=== PATIENT | male | born 1965 | race Caucasian/White ===

== ENCOUNTER 2019-06-03 11:25 | Emergency (ER) | payer BC ==
[2019-06-03] MEDS ORDERED: FLU Vacc QS2019-20(6MOS+)/PF 60 MCG/0.5 ML SYRINGE IM ONE (12:00)
[2019-06-03] MEDS ORDERED: Sodium Chloride 0.9% 10 ML Syringe FLUSH PRN (12:02)
[2019-06-03] MEDS ORDERED: Sodium Chloride 0.9% 1,000 ML IV ONE (12:03)
[2019-06-03] MEDS ORDERED: Ondansetron 4 MG/2 ML SDV IVPUSH ONE (12:03)
--- NOTE | 2019-06-03 12:33 | EDM.PDOC ---
ED HPI GENERAL MEDICAL PROBLEM - General Chief Complaint: Respiratory Problem Stated Complaint: CHEST CONGESTION Time Seen by Provider: 06/03/19 11:57 Source of Information: Reports: Patient, RN Notes Reviewed History Limitations: Reports: No Limitations - History of Present Illness INITIAL COMMENTS - FREE TEXT/NARRATIVE: Patient is a 53-year-old male who presents to the ED for the evaluation of chest congestion and a cough. The patient states that since May 18, he has had increased chest congestion, a cough that is now producing some dark yellow to green sputum, nasal congestion and fevers. Patient states that his temperatures been as high as 104 at home, however temperature in here today is 98.7F. Patient has been taking some Tylenol and NyQuil for management of these symptoms, but nothing has been really working. He is been unable to go to work due to the illness. Patient states he's been trying to go be seen in the clinic however they tell him that there fall, so he presents to the ER for evaluation. Patient states he's been coughing so much she just has muscle discomfort generally all over. He states that he coughs so much once that he ended up vomiting. He notes some mild nausea but no other vomiting noted. He' s been noticing streaks of blood in the phlegm and when he is going his nose. Patient relates a history of vertigo, so he states his ears are normally all stuffed up. His complaints are shortness of breath, generalized myalgias, dizziness that is not out of the norm for him, some nausea, chest pain or discomfort, a productive cough, and fevers and chills. His primary care physician is Chadwick Doe Chest Pain Score (Numeric/FACES): 7 - Related Data Allergies Allergy/AdvReac Type Severity Reaction Status Date / Time pollen extracts Allergy Sneezing Verified 06/03/19 11:51 Home Meds: Home Meds Azithromycin 250 mg PO DAILY #6 tablet 06/03/19 [Rx] Pravastatin [Pravachol] 40 mg PO DAILY 06/03/19 [History] Past Medical History Cardiovascular History: Reports: High Cholesterol Respiratory History: Reports: None Gastrointestinal History: Reports: GERD Genitourinary History: Reports: None Musculoskeletal History: Reports: Arthritis Neurological History: Reports: None Psychiatric History: Reports: Depression Endocrine/Metabolic History: Reports: None Hematologic History: Reports: None Immunologic History: Reports: None Oncologic (Cancer) History: Reports: None Dermatologic History: Reports: None - Infectious Disease History Infectious Disease History: Reports: None - Past Surgical History Head Surgeries/Procedures: Reports: None HEENT Surgical History: Reports: Adenoidectomy, Myringotomy w Tube(s), Tonsillectomy Other HEENT Surgeries/Procedures: Right Ear Tube Social & Family History - Tobacco Use Smoking Status *Q: Never Smoker - Caffeine Use Caffeine Use: Reports: Coffee - Recreational Drug Use Recreational Drug Use: No ED ROS GENERAL - Review of Systems Review Of Systems: See Below Constitutional: Reports: Fever, Chills, Malaise HEENT: Reports: No Symptoms Respiratory: Reports: Shortness of Breath, Cough, Sputum Cardiovascular: Reports: Chest Pain (chest discomfort) Endocrine: Reports: No Symptoms GI/Abdominal: Reports: Nausea, Vomiting (1 episode d/t coughing hard). Denies: Abdominal Pain, Constipation, Diarrhea : Reports: No Symptoms Musculoskeletal: Reports: Muscle Pain (generalized myalgias) Skin: Reports: No Symptoms Neurological: Reports: Dizziness. Denies: Headache Psychiatric: Reports: No Symptoms Hematologic/Lymphatic: Reports: No Symptoms Immunologic: Reports: No Symptoms ED EXAM, GENERAL - Physical Exam Exam: See Below Exam Limited By: No Limitations General Appearance: Alert, WD/WN, No Apparent Distress Eye Exam: Bilateral Eye: EOMI, Normal Inspection, PERRL Ears: Normal External Exam, Normal Canal, Hearing Grossly Normal, Normal TMs Nose: Normal Inspection Throat/Mouth: Normal Inspection, Normal Lips, Normal Teeth, Normal Gums, Normal Oropharynx, Normal Voice, No Airway Compromise Head: Atraumatic, Normocephalic Neck: Normal Inspection Respiratory/Chest: No Respiratory Distress, Lungs Clear, No Accessory Muscle Use , Chest Non-Tender, Decreased Breath Sounds (bilaterally) Cardiovascular: Normal Peripheral Pulses, Regular Rate, Rhythm, No Murmur Peripheral Pulses: 3+: Radial (L), Radial (R) GI/Abdominal: Normal Bowel Sounds, Soft, Non-Tender, No Distention, No Mass Extremities: Normal Inspection, Normal Capillary Refill Neurological: Alert, Oriented, Normal Cognition, No Motor/Sensory Deficits Psychiatric: Normal Affect, Normal Mood Skin Exam: Warm, Dry, Intact, Normal Color, No Rash EKG INTERPRETATION EKG Date: 06/03/19 Time: 12:06 Rhythm: Other (Sinus tach) Rate (Beats/Min): 104 [place]: Normal P-Wave: Present QRS: Normal ST-T: Normal QT: Normal Comparison: NA - No Prior EKG EKG Interpretation Comments: Reviewed with Dr. Eagle and by myself. Course - Vital Signs Last Recorded V/S: Last Vital Signs Temp 98.7 F 06/03/19 11:47 Pulse 104 H 06/03/19 11:47 Resp 18 06/03/19 11:47 BP 142/88 H 06/03/19 11:47 Pulse Ox 95 06/03/19 11:47 - Orders/Labs/Meds Orders: Active Orders 24 hr Category Date Time Status EKG Documentation Completion [] STAT Care 06/03/19 12:01 Active Incentive Spirometry [RT Incentive Spirometry] [] Care 06/03/19 15:06 Active Q1HWA Influenza Vaccine Charge [] .DISCHARGE Care 06/03/19 11:55 Active Peripheral IV Care [] . DIRECTED Care 06/03/19 12:03 Active Sodium Chloride 0.9% [Normal Saline] 1,000 ml Med 06/03/19 12:03 Active IV ONETIME Sodium Chloride 0.9% [Saline Flush] Med 06/03/19 12:02 Active 10 ml FLUSH ASDIRECTED PRN Peripheral IV Insertion Adult [OM.PC] Stat Oth 06/03/19 12:02 Ordered Medication Orders Sodium Chloride (Normal Saline) 1,000 mls @ 125 mls/hr IV ONETIME ONE Stop: 06/03/19 20:02 Last Admin: 06/03/19 13:14 Dose: 125 mls/hr Sodium Chloride (Saline Flush) 10 ml FLUSH ASDIRECTED PRN PRN Reason: Keep Vein Open Last Admin: 06/03/19 13:14 Dose: 10 ml Labs: Laboratory Tests 06/03/19 06/03/19 Range/Units 12:15 12:15 WBC 16.29 H (4.23-9.07) K/mm3 RBC 4.68 (4.63-6.08) M/mm3 Hgb 14.7 D (13.7-17.5) gm/dl Hct 42.0 (40.1-51.0) % MCV 89.7 (79.0-92.2) fl MCH 31.4 (25.7-32.2) pg MCHC 35.0 (32.2-35.5) g/dl RDW Std Deviation 41.4 (35.1-43.9) fL Plt Count 399 H D (163-337) K/mm3 MPV 8.9 L (9.4-12.3) fl Neutrophils % (Manual) 80 H (40-60) % Band Neutrophils % 5 (0-10) % Lymphocytes % (Manual) 11 L (20-40) % Atypical Lymphs % 0 % Monocytes % (Manual) 4 (2-10) % Eosinophils % (Manual) 0 L (0.8-7.0) % Basophils % (Manual) 0 L (0.2-1.2) Platelet Estimate Adequate RBC Morph Comment Normal Sodium 137 (136-145) mEq/L Potassium 4.8 (3.5-5.1) mEq/L Chloride 103 (98-107) mEq/L Carbon Dioxide 24 (21-32) mEq/L Anion Gap 14.8 (5-15) BUN 11 (7-18) mg/dL Creatinine 1.1 (0.7-1.3) mg/dL Est Cr Clr Drug Dosing 76.77 mL/min Estimated GFR (MDRD) > 60 (>60) mL/min BUN/Creatinine Ratio 10.0 L (14-18) Glucose 100 (74-106) mg/dL Calcium 9.1 (8.5-10.1) mg/dL Total Bilirubin 0.5 (0.2-1.0) mg/dL AST 29 (15-37) U/L ALT 47 (16-63) U/L Alkaline Phosphatase 126 H (46-116) U/L Troponin I < 0.017 (0.00-0.056) ng/mL Total Protein 7.5 (6.4-8.2) g/dl Albumin 3.2 L (3.4-5.0) g/dl Globulin 4.3 gm/dL Albumin/Globulin Ratio 0.7 L (1-2) Meds: Medications Generic Name Dose Route Start Last Admin Trade Name Freq PRN Reason Stop Dose Admin Sodium Chloride 1,000 mls @ 125 mls/hr 06/03/19 12:03 06/03/19 13:14 Normal Saline IV 06/03/19 20:02 125 mls/hr ONETIME ONE Administration Sodium Chloride 10 ml 10/02/19 12:02 06/03/19 13:14 Saline Flush FLUSH 10 ml ASDIRECTED PRN Administration Keep Vein Open Discontinued Medications Generic Name Dose Route Start Last Admin Trade Name Cassandra PRN Reason Stop Dose Admin Ceftriaxone Sodium 2 gm/ 100 mls @ 200 mls/hr 06/03/19 13:27 06/03/19 14:03 Sodium Chloride IV 06/03/19 13:56 200 mls/hr ONETIME ONE Administration Influenza Virus Vaccine 1 each 06/03/19 11:55 Pharmacy To Dose - Influenza Vaccine IM 06/03/19 11:56 ONETIME ONE Influenza Virus Vaccine 60 mcg 06/03/19 12:00 Fluzone Quad [id number] Syringe IM 06/03/19 12:01 .ONCE ONE Ondansetron HCl 4 mg 06/03/19 12:03 06/03/19 13:14 Zofran IVPUSH 06/03/19 12:04 4 mg ONETIME ONE Administration - Re-Assessments/Exams Free Text/Narrative Re-Assessment/Exam: 06/03/19 12:00 Patient presents to the ED for evaluation of chest congestion and a cough for 2 weeks. Have ordered a chest x-ray, CBC, CMP, EKG, and troponin, some IV fluids , and 4 mg Zofran for initial management. He states he was mildly nauseous at time of arrival. 06/03/19 13:14 Patient's chest x-ray is done, and there was an area on the right side of his chest so suspicious for developing pneumonia in nature, this was identified by myself and Dr. Eagle. His white blood cell count is elevated at 16,000 with 80 % neutrophils and 5% bands, which further points in the direction of a pneumonia. 06/03/19 13:31 Patient's chest x-ray is done, and radiology appreciates nothing acute on the two-view chest x-ray, however due to the patient's increased white count and course of illness I will treat him for pneumonia, he will get 2 g Rocephin in the ER, with an outpatient prescription for a azithromycin. Of note the patient 's oxygen saturations to go to the low 90s when the patient is coughing, but they returned to mid 90s when he takes some deeper breaths. 06/03/19 14:41 Patient did receive his IV Rocephin, we'll discharge home with general recommendations. There is a new quality management that every patient ER should be offered a influenza vaccine, however with the patient's current illness it is not clinically indicated for this gentleman to receive the vaccination today, it was discussed with him about waiting until he is feeling better to get the influenza vaccine, he is in agreement with this. Departure - Departure Time of Disposition: 14:42 Disposition: Home, Self-Care 01 Condition: Fair Clinical Impression: Pneumonia Qualifiers: Pneumonia type: due to unspecified organism Laterality: right Lung location: middle lobe of lung Qualified Code(s): J18.1 - Lobar pneumonia, unspecified organism - Discharge Information *PRESCRIPTION DRUG MONITORING PROGRAM REVIEWED*: No *COPY OF PRESCRIPTION DRUG MONITORING REPORT IN PATIENT SPENCER: No Prescriptions: Azithromycin 250 mg PO DAILY #6 tablet Instructions: Community-Acquired Pneumonia, Adult, [id number] Referrals: Vandana Doe, DNA ANALYST [Primary Care Provider] - Forms: ED Department Discharge Additional Instructions: You have been evaluated in the ED today for your cough and chest congestion. Your chest x-ray demonstrated an area on your right lung that was suspicious for pneumonia, your laboratory evaluation included an elevated white count which also suggest pneumonia. You were given a dose of IV medications in the ER today for initial management, and a prescription for outpatient antibiotics, please take the azithromycin as follows, 2 tablets on day 1, and then 1 tablet daily until the medicine is gone. This was electronically sent to the [facility] pharmacy located by [facility]. Please increase your fluid intake. Get plenty of rest as well. You should feel better in a few days. Recommend that you take some [id number] cough remedies to combat this. Medicines like Robitussin would work fine. If your symptoms are not better in one week's time recommend that you follow up in a clinic or your primary care provider. Please return to the ED if your symptoms change or worsen. - My Orders Last 24 Hours: My Active Orders 06/03/19 11:55 Influenza Vaccine Charge [RC] .DISCHARGE 06/03/19 12:01 EKG Documentation Completion [RC] STAT 06/03/19 12:02 Sodium Chloride 0.9% [Saline Flush] 10 ml FLUSH ASDIRECTED PRN Peripheral IV Insertion Adult [OM.PC] Stat 06/03/19 12:03 Peripheral IV Care [RC] . DIRECTED Sodium Chloride 0.9% [Normal Saline] 1,000 ml IV ONETIME 06/03/19 15:06 Incentive Spirometry [RT Incentive Spirometry] [RC] Q1HWA - Assessment/Plan Last 24 Hours: My Active Orders 06/03/19 11:55 Influenza Vaccine Charge [RC] .DISCHARGE 06/03/19 12:01 EKG Documentation Completion [RC] STAT 06/03/19 12:02 Sodium Chloride 0.9% [Saline Flush] 10 ml FLUSH ASDIRECTED PRN Peripheral IV Insertion Adult [OM.PC] Stat 06/03/19 12:03 Peripheral IV Care [RC] . DIRECTED Sodium Chloride 0.9% [Normal Saline] 1,000 ml IV ONETIME 06/03/19 15:06 Incentive Spirometry [RT Incentive Spirometry] [RC] Q1HWA
--- NOTE | 2019-06-03 13:22 | CR ---
Chest: Two views of the chest were obtained. Comparison: No prior chest x-ray. Heart size and mediastinum are normal. Lungs are clear. Bony structures are within normal limits for the patient's age. Impression: 1. Nothing acute is appreciated on two-view chest x-ray. Diagnostic code #1
[2019-06-03] MEDS ORDERED: cefTRIAXone 2 GM in Sodium Chloride 0.9% 100 ML IV ONE (13:27)
== END 2019-06-03 15:07 | disposition home or self-care (01) ==
LOC: JD.ED 11:25
DX: J18.1 Lobar pneumonia, unspecified organism (principal); E78.00 Pure hypercholesterolemia, unspecified; Z79.899 Other long term (current) drug therapy; Z91.09 Other allergy status, other than to drugs and biological substances
CPT/HCPCS: 36415; 71046; 80053; 84484; 85007; 85027; 93005; 96361; 96365; 96375; 99284; J0696; J2405; J7030; J7040; 93010

== ENCOUNTER 2019-11-18 12:52 | Emergency (ER) | payer BC ==
--- NOTE | 2019-11-18 13:22 | EDM.PDOC ---
ED HPI GENERAL MEDICAL PROBLEM - General Chief Complaint: Lower Extremity Injury/Pain Stated Complaint: L FOOT INJURY Time Seen by Provider: 11/18/19 13:20 Source of Information: Reports: Patient, RN Notes Reviewed History Limitations: Reports: No Limitations - History of Present Illness INITIAL COMMENTS - FREE TEXT/NARRATIVE: Patient is a 54-year-old male who presents to the ED for the evaluation of a left foot injury. Patient states that he was getting ready for work this morning, he stepped off of a step, ended up kind of slipping and felt and heard a pop on his left lateral foot. Patient is complaining most of his pain in this region, along with some swelling. This is over the left lateral midfoot. Patient notes that when he puts pressure on it as he is walking it does seem to make it worse, but he is able to bear weight. He is not having any numbness or tingling into his toes, and is still able to wiggle his toes. He is not complaining of pain in his ankle. He did not take any sort of Tylenol ibuprofen for pain management. He rates his pain at a 3 out of 10. Left Foot Pain Score (Numeric/FACES): 3 - Related Data Allergies Allergy/AdvReac Type Severity Reaction Status Date / Time pollen extracts Allergy Sneezing Verified 11/18/19 13:08 Home Meds: Home Meds Pravastatin [Pravachol] 40 mg PO DAILY 06/03/19 [History] Past Medical History Cardiovascular History: Reports: High Cholesterol Gastrointestinal History: Reports: GERD Musculoskeletal History: Reports: Arthritis Psychiatric History: Reports: Depression - Past Surgical History HEENT Surgical History: Reports: Adenoidectomy, Myringotomy w Tube(s), Tonsillectomy Other HEENT Surgeries/Procedures: Right Ear Tube Social & Family History - Family History Family Medical History: Noncontributory - Tobacco Use Smoking Status *Q: Never Smoker Second Hand Smoke Exposure: No - Caffeine Use Caffeine Use: Reports: Coffee - Recreational Drug Use Recreational Drug Use: No Review of Systems - Review of Systems Review Of Systems: Comprehensive ROS is negative, except as noted in HPI. ED EXAM, GENERAL - Physical Exam Exam: See Below Exam Limited By: No Limitations General Appearance: Alert, WD/WN, No Apparent Distress Eye Exam: Bilateral Eye: EOMI, Normal Inspection, PERRL Throat/Mouth: Normal Inspection, Normal Lips, Normal Teeth, Normal Gums, Normal Oropharynx, Normal Voice, No Airway Compromise Head: Atraumatic Neck: Normal Inspection Respiratory/Chest: No Respiratory Distress, Lungs Clear, Normal Breath Sounds, No Accessory Muscle Use, Chest Non-Tender Cardiovascular: Normal Peripheral Pulses, Regular Rate, Rhythm, No Murmur Extremities: Normal Range of Motion, Normal Capillary Refill, Limited Range of Motion (Of left foot due to injury. There is a small amount of swelling noted to the left lateral midfoot, on the dorsum. No bruising noted, no obvious deformity noted.) Neurological: Alert, Oriented, Normal Cognition, No Motor/Sensory Deficits Psychiatric: Normal Affect, Normal Mood Skin Exam: Warm, Dry, Intact, Normal Color, No Rash ED TRAUMA EXTREMITY PROCEDURES - Splinting Left Lower Extremity Splint Site: Left foot/leg Pre-Procedure NV Status: Normal Post-Procedure NV Status: Normal Splint Material: Fiberglass Splint Design: Posterior (short leg) Applied & Form Fitted By: Provider Provider Post-Splint Application NV Check: NV Status Normal, Good Position Complications: No Course - Vital Signs Last Recorded V/S: Last Vital Signs Temp 97.7 F 11/18/19 13:03 Pulse 78 11/18/19 13:03 Resp 16 11/18/19 13:03 BP 131/94 H 11/18/19 13:03 Pulse Ox 97 11/18/19 13:03 - Orders/Labs/Meds Orders: Active Orders 24 hr Category Date Time Status DME for Discharge [COMM] Routine Oth 11/18/19 14:04 Ordered - Re-Assessments/Exams Free Text/Narrative Re-Assessment/Exam: 11/18/19 13:41 Patient presents to the ED for the evaluation of his foot injury. I did order x- rays for evaluation at this time. 11/18/19 13:45 Patient's x-ray is completed, and does demonstrate an undisplaced Wells type fracture of the fifth metatarsal bone of the left foot, near the proximal base. Official radiology read is pending. This x-ray was reviewed by myself and Dr. Escalante. 11/18/19 14:06 Patient's x-ray has been read per radiology, and does correlate findings by myself and Dr. Escalante. Departure - Departure Time of Disposition: 14:07 Disposition: Home, Self-Care 01 Condition: Fair Clinical Impression: Metatarsal bone fracture Qualifiers: Encounter type: initial encounter Metatarsal bone: fifth Fracture type: closed Fracture alignment: nondisplaced Laterality: left Qualified Code(s): S92.355A - Nondisplaced fracture of fifth metatarsal bone, left foot, initial encounter for closed fracture - Discharge Information *PRESCRIPTION DRUG MONITORING PROGRAM REVIEWED*: No *COPY OF PRESCRIPTION DRUG MONITORING REPORT IN PATIENT SPENCER: No Instructions: Metatarsal Fracture Referrals: Vandana Doe CHEMICAL PRODUCTION TECHNICIAN [Primary Care Provider] - Forms: ED Department Discharge Additional Instructions: You have been evaluated in the ED for your left foot injury. Your x-ray demonstrated a nondisplaced fracture of your 5th metatarsal that is near the base and is nondisplaced and in good alignment. Please use ice as tolerated to the affected area. You will need to stay nonweightbearing on the left lower extremity unless told otherwise by orthopedics. If you do start bearing weight on the foot, it could displace the fracture, and you may end up needing foot surgery. It is imperative that you stay nonweightbearing during this time. You may use the crutches/or knee wheel chair at home for further ambulation. You may take Tylenol 500 mg or ibuprofen 600mg q6 hrs for pain relief. Please do so until you have a tolerable level of pain with activity. Do not exceed 4000mg Tylenol, Do not exceed 3200mg ibuprofen in a 24 hour time period. Please call Ortho for follow-up and further evaluation Dr. Huizar is our orthopedic surgeon, his office number is [phone]. Please call and set up an appointment as soon as possible for further management. You may also try Dr. Zelaya, orthopedic podiatrist at [facility]. Their number is [phone]. Please return to ED if your symptoms should change or worsen. Sepsis Event Note - Evaluation Sepsis Screening Result: No Definite Risk - Focused Exam Vital Signs: Vital Signs Temp Pulse Resp BP Pulse Ox 11/18/19 13:03 97.7 F 78 16 131/94 H 97 Date Exam was Performed: 11/18/19 Time Exam was Performed: 14:24 - My Orders Last 24 Hours: My Active Orders 11/18/19 14:04 DME for Discharge [COMM] Routine - Assessment/Plan Last 24 Hours: My Active Orders 11/18/19 14:04 DME for Discharge [COMM] Routine
--- NOTE | 2019-11-18 14:05 | CR ---
Left foot: Four views of the left foot were obtained. Joint space narrowing and mild osteophytes are seen within the first MTP joint. Nondisplaced fracture is noted within the base of the fifth metatarsal. No additional fracture or other bony abnormality is seen. Impression: 1. Nondisplaced fracture within the base of the fifth metatarsal. 2. Degenerative change as noted above. Diagnostic code #3 Study was dictated in MDT
== END 2019-11-18 14:39 | disposition home or self-care (01) ==
LOC: JD.ED 12:52
DX: S92.355A Nondisplaced fracture of fifth metatarsal bone, left foot, initial encounter for closed fracture (principal); Z91.09 Other allergy status, other than to drugs and biological substances; W01.0XXA Fall on same level from slipping, tripping and stumbling without subsequent striking against object, initial encounter
CPT/HCPCS: 29515; 73630-26-LT; 73630-LT; 99283-25

== ENCOUNTER 2024-11-24 07:30 | Day surgery (SDC) | payer BC ==
[~2024-11-24 07:30] MED LIST: Sodium Chloride 0.9% 10 ML Syringe FLUSH PRN
[2024-11-24] MEDS ORDERED: Propofol 200 MG/20 ML SDV ONE ×3 (07:42→08:20)
[2024-11-24] MEDS: Lactated Ringers 1,000 ML IV SCH (07:45)
[2024-11-24] MEDS ORDERED: Sodium Chloride 0.9% 10 ML Syringe FLUSH SCH (09:00)
== END 2024-11-24 09:42 | disposition home or self-care (01) ==
LOC: JD.SDS 07:30
PROVIDERS: ATTEND Surgery
DX: D12.8 Benign neoplasm of rectum (principal); K29.50 Unspecified chronic gastritis without bleeding; K20.90 Esophagitis, unspecified without bleeding; K31.89 Other diseases of stomach and duodenum; K44.9 Diaphragmatic hernia without obstruction or gangrene; D50.9 Iron deficiency anemia, unspecified; E78.5 Hyperlipidemia, unspecified; Z88.8 Allergy status to other drugs, medicaments and biological substances
CPT/HCPCS: 43239; 45385; J2704; J7120; 00813